=== PATIENT | female | born 1985 | race Caucasian/White ===

== ENCOUNTER → 2016-10-09 | Outpatient (CLI) | payer OTHER ==
--- NOTE | ~2016-10-09 | CR181 ---
[facility] A Service of [facility] RADIOLOGY TEXT RESULTS PATIENT: URSZULA RACHEL LOCATION: [facility] : [birth year] UNIT #: [id number] AGE: [address]: Kenny Soares MD SEX: F ORDER DR: [id number] [facility] [address] [place], [place] [address] [id number] O MR#: [id number] Acc #: [id number] NAME: URSZULA RACHEL : 1985 SEX: F STUDY DATE/TIME: 10/09/2016 14:49 UNIT: [facility] ROOM: STUDY DESCRIPTION: CR Lumbar Spine 2 or 3 Views Attending Physician: Kenny Soares M.D. Ordering Physician: Kenny Soares M.D. Primary Care Physician: Kenny Soares M.D. MEDICAL IMAGING REPORT This report is preliminary unless electronic signature is present EXAM Lumbar spine 10/09/2016 HISTORY 31-year-old female with low back pain and right buttock and thigh pain for 7 weeks. No recent injury. Patient states history of lower back fracture while in College. COMPARISON None FINDINGS 3 views of the lumbar spine demonstrate a presumably chronic compression fracture of the T12 vertebral body, consistent with provided clinical history. No acute fracture or subluxation of the lumbar spine. Lumbar vertebral body heights and alignment are normally maintained. Disc spaces and facets are within expected limits. Sacrum and SI joints intact. IMPRESSION 1. Presumably chronic compression fracture of the T12 vertebral body consistent with provided clinical history of lower back fracture while the patient was in college. 2. No acute lumbar spine injury. Lumbar spine appears otherwise unremarkable. If clinical symptoms persist, consider further evaluation with MRI. Dictated by... Robby Swann M.D. THIS IS AN ELECTRONICALLY VERIFIED REPORT Robby Swann M.D. at 10/11/2016 8:05 AM [facility] A Service of [facility] RADIOLOGY TEXT RESULTS PATIENT: URSZULA RACHEL LOCATION: [facility] : 83 UNIT #: [id number] AGE: [address]: Kenny Soares MD SEX: F ORDER DR: TD: 10/09/2016 17:21 JOB #: [id number] MEDICAL IMAGING REPORT Page 1 of 1 COPY
== END | disposition home or self-care (01) ==
LOC: CRAD 14:25
DX: M54.41 Lumbago with sciatica, right side (principal)
CPT/HCPCS: 72100